=== PATIENT | female | born 1985 | race Native Hawaiian/Other Pacific Islander ===

== ENCOUNTER 2020-11-06 20:37 | Emergency (ER) | payer OTHER ==
[~2020-11-06] VITALS: Ht 160 cm; Wt 72.6 kg
[2020-11-06 22:00] VITALS: BP 104/72; TEMP 98.1
== END 2020-11-06 22:00 | disposition home or self-care (01) ==
LOC: ED 20:37
DX: T78.49XA Other allergy, initial encounter (principal); L50.0 Allergic urticaria; R21 Rash and other nonspecific skin eruption; T36.8X5A Adverse effect of other systemic antibiotics, initial encounter; Y92.89 Other specified places as the place of occurrence of the external cause
CPT/HCPCS: 36415; 96374; 96375; 99284; J1200; J2930

== ENCOUNTER 2021-11-26 00:42 | Emergency (ER) | payer OTHER ==
[~2021-11-26] VITALS: Ht 160 cm; Wt 72.6 kg
[2021-11-26 01:16] LABS: PLATELET COUNT 268 K/uL (152-353)
[2021-11-26 01:29] LABS: POTASSIUM 3.3 mmol/L (3.6-5.2)
[2021-11-26 19:30] VITALS: BP 118/60; TEMP 97.4
== END 2021-11-27 07:35 | disposition other institution (70) ==
LOC: ED 00:42
PROVIDERS: Hospitalist
DX: F32.3 Major depressive disorder, single episode, severe with psychotic features (principal); F43.21 Adjustment disorder with depressed mood; R44.0 Auditory hallucinations; U07.1 COVID-19
CPT/HCPCS: 36415; 80053; 80307; 80320; 80329; 81000; 81025; 85027; 87635; 93005; 96372; 99283; J1200; J1885; J2060; J2405; U0003

== ENCOUNTER 2023-02-11 20:40 | Emergency (ER) | payer OTHER ==
[~2023-02-11] VITALS: Ht 160 cm; Wt 77.6 kg
[2023-02-11 20:57] VITALS: BP 137/92; TEMP 98.4
[2023-02-11 22:18] LABS: PLATELET COUNT 251 K/uL (152-353)
[2023-02-11 22:19] LABS: POTASSIUM 4.1 mmol/L (3.6-5.2)
== END 2023-02-11 23:54 | disposition home or self-care (01) ==
LOC: ED 20:40
PROVIDERS: Emergency Medicine
DX: N39.0 Urinary tract infection, site not specified (principal); K85.90 Acute pancreatitis without necrosis or infection, unspecified
CPT/HCPCS: 80053; 81000; 81025; 83690; 85027; 87086; 87088; 96365; 96375; 99283; 99284; J2270; J2405; J3490

== ENCOUNTER 2023-05-19 22:26 | Emergency (ER) | payer OTHER ==
[~2023-05-19] VITALS: Ht 160 cm; Wt 68.0 kg
[2023-05-20 01:30] LABS: PLATELET COUNT 277 K/uL (152-353)
[2023-05-20 01:47] LABS: POTASSIUM 3.6 mmol/L (3.6-5.2); SODIUM 141 mmol/L (136-145)
[2023-05-20 14:05] VITALS: BP 124/72; TEMP 98.4
== END 2023-05-20 14:05 | disposition other institution (70) ==
LOC: ED 22:26
PROVIDERS: Family Medicine
DX: F29 Unspecified psychosis not due to a substance or known physiological condition (principal); T50.902A Poisoning by unspecified drugs, medicaments and biological substances, intentional self-harm, initial encounter
CPT/HCPCS: 80053; 80143; 80179; 80307; 80320; 81000; 81025; 83735; 85027; 93005; 96372; 99285; J1200; J2060